=== PATIENT | female | born 1940 | race Caucasian/White ===

== ENCOUNTER → 2017-08-22 | Outpatient (CLI) | payer OTHER | END | disposition home or self-care (01) | LOC: CFH 12:44 | PROVIDERS: ATTEND Internal Medicine | DX: Z12.31 Encounter for screening mammogram for malignant neoplasm of breast (principal) | CPT/HCPCS: G0202 ==

== ENCOUNTER → 2017-09-27 | Outpatient (CLI) | payer MEDICARE, OTHER | END | disposition home or self-care (01) | LOC: CFH 07:40 | PROVIDERS: ATTEND Nurse Practitioner Family | DX: K42.9 Umbilical hernia without obstruction or gangrene (principal); N18.3 Chronic kidney disease, stage 3 (moderate) | CPT/HCPCS: 76700 ==

== ENCOUNTER → 2017-11-13 | Outpatient (CLI) | payer MEDICARE ==
[~2017-11-13] MED LIST: ACET-1600 PO; ALEN70TA5 PO; AMLO10TA2 PO; CALC1TAB2 PO; CELE400C PO; CHOL40002 PO; DIPH25TA65 PO; FURO-92 PO; LACT1CAP37 PO; LEVO200T PO; LOVA40TA2 PO; METH479P PO; POTA10TA12 PO; [UNRECOGNIZED DRUG - OTHER] PO; [UNRECOGNIZED DRUG - OTHER] PO; tylenol PM PO
[2017-11-13 14:45] LABS: ALANINE AMINOTRANSFERASE 26 U/L (12-78); ALBUMIN 4.2 g/dL (3.4-5.0); ANION GAP 8 mmol/L (5-15); CALCIUM 9.1 mg/dL (8.5-10.1); CHLORIDE 106 mmol/L (98-107)
[2017-11-13 14:47] LABS: ALKALINE PHOSPHATASE 48 U/L (45-117); TOTAL PROTEIN 7.3 g/dL (6.4-8.2)
== END ==
LOC: STAR 13:08
PROVIDERS: ATTEND Thoracic Surgery (Cardiothoracic Vascular Surgery)
DX: Z01.818 Encounter for other preprocedural examination (principal); R94.31 Abnormal electrocardiogram [ECG] [EKG]
CPT/HCPCS: 36415; 80053; 93005

== ENCOUNTER 2017-11-22 05:41 | Observation (INO) | payer MEDICARE ==
[~2017-11-22] VITALS: Ht 152.4 cm; Wt 85.6 kg
[2017-11-22] MEDS ORDERED: LACTATED RINGERS 1,000 ML IV SCH (06:12)
[2017-11-22 06:40] VITALS: BP 139/78
[2017-11-22] MEDS ORDERED: FENTANYL PF 250 MCG/5ML ONE (06:40)
[2017-11-22] MEDS ORDERED: MIDAZOLAM 1 MG/ML, 2ML ONE (06:40)
[2017-11-22] MEDS ORDERED: PROPOFOL 10 MG/ML, 20ML ONE (06:43)
[2017-11-22] MEDS ORDERED: SODIUM CHLORIDE 0.9% PF 10ML ONE (06:44)
[2017-11-22] MEDS ORDERED: ONDANSETRON 2MG/ML, 2ML ONE (06:44)
[2017-11-22] MEDS ORDERED: CEFAZOLIN 1,000 MG ONE ×2 (06:44)
[2017-11-22] MEDS ORDERED: DEXAMETHASONE 4 MG/ML, 1ML ONE ×2 (06:44)
[2017-11-22] MEDS ORDERED: ROCURONIUM 10 MG/ML,10ML ONE (06:47)
[2017-11-22] MEDS ORDERED: NEOSTIGMINE 1 MG/ML, 10ML ONE (06:48)
[2017-11-22] MEDS ORDERED: GLYCOPYRROLATE 0.4 MG/2 ML, 2ML ONE (06:48)
[2017-11-22] MEDS ORDERED: EPINEPHRINE 1 MG/ML, 1ML ONE (06:57)
[2017-11-22] MEDS ORDERED: BUPIVACAINE/PF 0.5% ONE (06:57)
[2017-11-22] MEDS ORDERED: ONDANSETRON 2MG/ML, 2ML IVPush PRN ×2 (07:30→10:00)
[2017-11-22] MEDS ORDERED: hydrALAzine 20 MG/ML, 1ML IV PRN ×2 (07:30→10:00)
[2017-11-22] MEDS ORDERED: HYDROmorphone 1 MG/ML, 1ML IV PRN (07:30)
[2017-11-22] MEDS ORDERED: ACETAMINOPHEN 325 MG TABLET PO PRN (07:30)
[2017-11-22] MEDS ORDERED: FENTANYL PF 100 MCG/2ML IV PRN (07:30)
[2017-11-22] MEDS ORDERED: LABETALOL 5MG/ML, 20ML IV PRN (07:30)
[2017-11-22] MEDS ORDERED: MEPERIDINE/PF 25MG/0.5ML IVPush PRN (07:30)
[2017-11-22] MEDS ORDERED: OXYcodone 5 MG/5 ML ORAL.SOL UDC PO PRN (07:30)
[2017-11-22] MEDS ORDERED: morphine SULFATE 10 MG/ML, 1ML IV PRN ×2 (07:30→10:00)
[2017-11-22] MEDS ORDERED: PROMETHAZINE 12.5 MG SUPP PR PRN ×2 (07:30→10:00)
[2017-11-22] MEDS ORDERED: PROMETHAZINE 25 MG/ML, 1ML IV PRN (07:30)
[2017-11-22] MEDS ORDERED: BUPIVACAINE/PF-EPI 0.5% 1:200K INFIL ONE (07:58)
[2017-11-22] MEDS ORDERED: FENTANYL PF 100 MCG/2ML ONE (09:16)
[2017-11-22] MEDS: LACTATED RINGERS 1,000 ML IV SCH ×2 (09:40→20:00)
[2017-11-22] MEDS ORDERED: PROMETHAZINE 25 MG/ML, 1ML IM PRN (10:00)
[2017-11-22] MEDS: FAMOTIDINE 20 MG/2 ML IV SCH (10:00)
[2017-11-22] MEDS ORDERED: LORazepam 2 MG/ML, 1ML IV PRN (10:00)
[2017-11-22] MEDS ORDERED: ENALAPRILAT 1.25 MG/ML, 2ML IV PRN (10:00)
[2017-11-22] MEDS ORDERED: DIPHENHYDRAMINE 50 MG/ML, 1ML IV PRN (10:00)
[2017-11-22] MEDS ORDERED: LORazepam 0.5MG TABLET PO PRN (10:00)
[2017-11-22] MEDS ORDERED: DIPHENHYDRAMINE 25 MG CAPSULE PO PRN (10:00)
[2017-11-22] MEDS ORDERED: OXYcodone 5 MG/5 ML ORAL.SOL UDC ONE (10:28)
[2017-11-22] MEDS ORDERED: ACETAMINOPHEN 650 MG/20.3 ML UDC ONE (10:28)
[2017-11-22] MEDS ORDERED: morphine SULFATE 10 MG/ML, 1ML ONE (11:22)
[2017-11-22] MEDS: FAMOTIDINE 20 MG TABLET PO SCH (13:52)
[2017-11-22 13:55] VITALS: BP 111/65
[2017-11-22] MEDS: HYDROcodone/APAP 5/325 TABLET PO PRN ×3 (14:27→20:18)
[2017-11-22] MEDS: CEFAZOLIN PMX 2GM/50ML 50 ML IV SCH (16:18)
[2017-11-22 19:50] VITALS: BP 102/65
[2017-11-22] MEDS ORDERED: LOVASTATIN 40 MG TABLET PO SCH (21:00)
[2017-11-23 00:13] VITALS: BP 109/59
[2017-11-23] MEDS: CEFAZOLIN PMX 2GM/50ML 50 ML IV SCH ×2 (00:17→07:51)
[2017-11-23] MEDS: HYDROcodone/APAP 5/325 TABLET PO PRN ×3 (00:17→08:00)
[2017-11-23] MEDS: KETOROLAC 30 MG/1 ML IV PRN ×2 (00:17→07:59)
[2017-11-23 03:34] VITALS: BP 105/62
[2017-11-23] MEDS: LACTATED RINGERS 1,000 ML IV SCH (04:11)
[2017-11-23] MEDS: FAMOTIDINE 20 MG TABLET PO SCH (07:52)
[2017-11-23] MEDS: FAMOTIDINE 20 MG/2 ML IV SCH (08:05)
[2017-11-23] MEDS ORDERED: LEVOTHYROXINE 200 MCG TABLET PO SCH (09:00)
[2017-11-23] MEDS ORDERED: AMLODIPINE 5 MG TABLET PO SCH (09:00)
[2017-11-23] MEDS ORDERED: ENOXAPARIN 30 MG/0.3 ML SQ SCH (09:00)
[2017-11-23 09:08] VITALS: BP 113/72
[2017-11-23] MEDS ORDERED: HYDR-3240 PO (09:57)
== END 2017-11-23 10:05 | disposition home or self-care (01) ==
LOC: ORIP 05:41 → INTOOBSV 05:41 → 4NOR 12:01
PROVIDERS: ADMIT Thoracic Surgery (Cardiothoracic Vascular Surgery); ATTEND Thoracic Surgery (Cardiothoracic Vascular Surgery)
DX: K43.0 Incisional hernia with obstruction, without gangrene (principal); E03.9 Hypothyroidism, unspecified; E78.00 Pure hypercholesterolemia, unspecified; Z83.3 Family history of diabetes mellitus; Z87.891 Personal history of nicotine dependence
CPT/HCPCS: 49657; 96365; 96372; 96375; 96376; C1781; G0378; J0171; J0690; J1100; J1650; J1885; J2250; J2270; J2405; J2704; J2710; J3010; J3490; J7120

== ENCOUNTER → 2017-11-28 | Outpatient (CLI) | payer MEDICARE ==
[~2017-11-28] MED LIST changes: +HYDR-3240 PO; +OMNIPAQUE 350 MG/ML, 100ML BOTTLE ONE
== END | disposition home or self-care (01) ==
LOC: RAD 16:19
PROVIDERS: ATTEND Physician Assistant
DX: K43.9 Ventral hernia without obstruction or gangrene (principal); Z90.49 Acquired absence of other specified parts of digestive tract
CPT/HCPCS: 74177; Q9967

== ENCOUNTER → 2020-11-10 | Outpatient (CLI) | payer MEDICARE, OTHER ==
[~2020-11-10] MED LIST changes: -ALEN70TA5 PO; +ALEN70TA77 PO; +AMLO-211 PO; -AMLO10TA2 PO; +HYDR-1067 PO; -HYDR-3240 PO; -OMNIPAQUE 350 MG/ML, 100ML BOTTLE ONE
== END | disposition home or self-care (01) ==
LOC: CFH 10:33
PROVIDERS: ATTEND Internal Medicine
DX: Z13.820 Encounter for screening for osteoporosis (principal); M81.0 Age-related osteoporosis without current pathological fracture
CPT/HCPCS: 77080